=== PATIENT | male | born 1990 | race Caucasian/White ===

== ENCOUNTER 2017-04-17 11:55 | Emergency (ER) | payer OTHER ==
[~2017-04-17] VITALS: Ht 182.9 cm; Wt 90.7 kg
[2017-04-17] MEDS ORDERED: Norco 5-325 Ta1 EACH PO (15:03)
[2017-04-17] MEDS ORDERED: Augmentin 875-1 EACH PO (15:03)
== END 2017-04-17 15:15 | disposition home or self-care (01) ==
LOC: ER 11:55
DX: K04.7 Periapical abscess without sinus (principal)
CPT/HCPCS: 99283

== ENCOUNTER 2017-04-18 11:14 | Emergency (ER) | payer OTHER ==
[~2017-04-18] VITALS: Ht 182.9 cm; Wt 90.7 kg
[~2017-04-18 11:14] MED LIST: Augmentin 875-1 EACH PO; Norco 5-325 Ta1 EACH PO
== END 2017-04-18 13:05 | disposition home or self-care (01) ==
LOC: ER 11:14
DX: K04.7 Periapical abscess without sinus (principal); K02.9 Dental caries, unspecified; F17.200 Nicotine dependence, unspecified, uncomplicated; Z79.2 Long term (current) use of antibiotics
CPT/HCPCS: 36415; 96365; 99283